=== PATIENT | male | born 1955 | race Caucasian/White ===

== ENCOUNTER 2022-03-22 01:10 | Day surgery (SDC) | payer BC, SELFPAY ==
[2022-03-21 15:12] VITALS: BMI 25.1
--- NOTE | 2022-03-21 15:17 | PC.NURSE ---
Report to the Outpatient Waiting Room, entrance under the green pavilion located off [facility], at time 0600 on date 03/22/22. Planned Procedure Time: 0730. Time changes happen often and if your time is changed the preop area will call you the afternoon before. - You and your visitor will be asked to self-screen and do not enter if you have any COVID symptoms. - Only one visitor is requested with a max of two and NO children visitors are allowed at this time. - The patient visitor may be requested to leave or wait in car when not with patient due to distancing restrictions. - A mask is optional within the hospital at this time. Patients may have clear liquids (water, carbonated beverages, clear teas, apple juice) until 3 hours prior to surgery with a maximum of 20 ounces. - No food from midnight until time of surgery Take the following medications with a SIP of water the morning of surgery: ANTIBIOTICS DO NOT STOP ANY OF YOUR OTHER PRESCRIPTION MEDICATIONS PRIOR TO SURGERY ?EXCEPT THE FOLLOWING Medications to discontinue per physician: VITAMINS Date to take last dose: NO MORE UNTIL AFTER SURGERY Please no make-up, nail cambodian, hairspray, perfume, deodorant, or body powder the day of surgery. No jewelry (including any body piercings) or valuables the day of surgery, leave them at home. Please take a shower or bath the night before, or the morning of, surgery with an antibacterial soap. Wear comfortable, loose fitting clothing. Children are encouraged to wear pajamas. - Jewelry must be removed prior to entering the operating room. Rings and piercings that are not removed may be cut off. - The hospital will not accept responsibility for valuables. - Please leave all valuables, including medications, at home the day of surgery. If you are going home after surgery, a licensed mule driver must drive you home. - NO public transportation without another adult if you receive anesthesia. - We recommend that an adult stay with you for 24 hours following discharge. - We also recommend that you do not drive, make important decision, drink alcoholic beverages, or take any drugs that were not prescribed by your health care provider for at least 24 hours after your discharge time. Follow any additional instructions given to you from your surgeon. If you or anyone in your household have experienced Covid symptoms in the past week, please notify your surgeon or the nurse liaison at the phone number below for possible testing. Telephone instructions given to PT - DEEPIKA PECK and asked if any additional questions and then verbalized understanding. Patient advised to call surgeon office or pre surgery nurse liaison [phone] if any additional questions.
[2022-03-22] VITALS (8 sets, daily range): BP systolic 86–128; BP diastolic 39–88; PULSE 58–68; RESP 12–18; TEMP 36.6–37.2; O2SAT 96–100
[2022-03-22] MEDS: ACETAMINOPHEN 500 MG TABLET 1000 MG PO (06:21)
[2022-03-22] MEDS: LACTATED RINGERS 1,000 ML 30 ML IV CONT ×2 (06:30→08:09)
--- NOTE | 2022-03-22 07:03 | WPDANESEPPF ---
Anes - Initial Pre Proc Eval Procedure: Operation Date: 03/22/22 07:30 Proposed Procedures p Incision and Drainage Noemy-Rectal Abscess - Arthur Christensen MD Date/Time: 03/22/22 07:03 Surgeon: Arthur Christensen MD Pre Op Diagnosis: noemy rectal abscess Patient Data Age: 66 Gender: M Height: 1.78 m Weight: 79.8 kg Last Vital Signs Temp 36.6 C 03/22/22 06:32 Pulse 66 03/22/22 06:32 Resp 16 03/22/22 06:32 BP 113/88 03/22/22 06:32 Pulse Ox 100 03/22/22 06:32 O2 Del Method Room Air 03/22/22 06:32 Allergies Allergy/AdvReac Type Severity Reaction Status Date / Time No Known Allergies Allergy Verified 03/22/22 06:12 Home Medications Medication Instructions Recorded Confirmed Type aspirin 81 mg chewable tablet 81 mg PO DAILY 03/21/22 03/22/22 History cephalexin 500 mg capsule 500 mg PO Q12H 03/21/22 03/22/22 History multivitamin 1 tablet PO DAILY 03/21/22 03/22/22 History sulfamethoxazole 800 1 tablet PO Q12H 03/21/22 03/22/22 History mg-trimethoprim 160 mg tablet Patient hx anesthesia problems: none Family hx anesthesia problems: none Results Review: All pre-operative results and documents have been reviewed as part of the pre-operative evaluation. [facility] Family History Family History (Updated 03/21/22 @ 10:30 by Arianne Vang) Other Malignant neoplasm of prostate Social History Social History (Updated 03/21/22 @ 10:31 by Arianne Vang) Smoking status: Never smoker Alcohol intake: current Drinks per week: 6 Substance use: never Substance use type: does not use Living arrangements: alone Occupation/Education: retired Spiritual care concerns: No Anes - Eval Final PreProcedure Day of Procedure 03/22/22 07:03 Patient weight: normal Heart: regular rate and rhythm Lungs: clear to auscultation and normal air movement Airway: Mallampati scale class II Neurological: alert and oriented Last oral intake: >/= 8 hours ASA classification: II Emergent: no Anesthetic plan: proceed Anesthesia type and monitoring: general GIVS and LMA Results Review: All pre-operative results and documents have been reviewed as part of the pre-operative evaluation. Informed Consent: The patient's anesthetic plan and its attendant risks and benefits were discussed with the patient/family/POA. Questions were solicited and answers provided to the satisfaction of the patient/family/POA.
[2022-03-22] MEDS: KETOROLAC 15 MG/ML VIAL (*BKC) IV PUSH ×2 (07:05→07:55)
--- NOTE | 2022-03-22 07:23 | WPDHPUPDATE1 ---
History and Physical Update Update Date/Time: 03/22/22 07:23 History and Physical has been reviewed, including an updated exam of the patient. There are NO changes in the patient's condition. Risks, benefits, and alternatives have been discussed and questions answered. Patient agrees to proceed with procedure.
[2022-03-22] MEDS: ceFAZolin 2 GM/D5W 50 ML 2 GM/50 ML BAG IVPB (07:32)
[2022-03-22] MEDS: LIDOCAINE HCL 1% PF 30 ML VIAL 20 ML INFILTRATE (07:59)
[2022-03-22] MEDS: BUPIVACAINE/EPINEPHRINE 0.5% 30 ML VIAL 20 ML INFILTRATE (07:59)
--- NOTE | 2022-03-22 08:13 | W.PM.PROC2 ---
Procedure Note - Detailed Date of Procedure 03/22/22 Pre-op Diagnosis nory rectal abscess Post-op Diagnosis Same Procedure Performed Complex incision and drainage of perirectal abscess. Surgeon Arthur Christensen MD Anesthesia General Indications Patient presents with a six-day history of increasing pain and swelling in the perianal region. On examination he has a perirectal abscess which is fluctuant. Findings Perirectal abscess located in the right posterior lateral position measuring approximately [id number] tracking posteriorly but without evidence of associated anal fistula. Description of Procedure After informed consent was obtained patient brought to the operating room and placed on the operating table in the lithotomy position high cane stirrups. Anesthesia then administered LMA general anesthesia. The area the perineal and perianal region was then prepped and draped in usual sterile fashion. A time-out was then performed correctly identifying the patient as well as the procedure to be performed and verified that he was given preoperative IV antibiotics. The area fluctuance was located approximately at the 7 o'clock position on the right posterior lateral side with the patient in lithotomy. I then used a #15 scalpel and made a radial incision over the most fluctuant portion of the abscess. The incision was approximately 1.5 cm in length. I took great care not to divide any sphincter muscles. Once the incision was made there was prompt drainage of approximately 20-30cc of pus. A culture of the abscess cavity was obtained and sent to microbiology for Gram stain and aerobic and anaerobic cultures. I then placed my index finger into the abscess cavity and there were no loculations. The the cavity tracked posterior for approximately 4 to 5 cm. At this point I then made a counter incision posteriorly with the scalpel and then irrigated out the cavity with proximal 500cc of saline solution. A quarter-inch Pricilla drain was then passed through the 2 incisions and looped to promote drainage. the Pricilla drain was secured in place with 2 0 silk sutures. I then packed the abscess cavity with half-inch iodoform gauze and then injected local anesthetic mixture consisting of 0.5% Marcaine with 1% lidocaine. The area was then cleaned and then 4 x 4 gauze and ABD pad and disposal underwear was used was used for final dressing. The patient tolerated the procedure well no complications. All sponges, needles, and instrument counts were correct at the end procedure. EBL was _25__cc. The patient was awakened and taken to recovery in stable satisfactory condition Estimated Blood Loss 25 Drains Yes (1/4 inch pricilla) Packing Yes (1/2 inch iodoform) Pathology Other (Abscess culture sent to microbiology.) Complications No immediate complications Condition Stable Disposition PACU [facility] Billing Surgery - Charge Forward: Surgery Billing
== END 2022-03-22 09:56 | disposition home or self-care (01) ==
PROVIDERS: PCP Internal Medicine Infectious Disease; Visit Provider Surgery
PROC: (CPT 46040; principal; 2022-03-22 07:30)
DX: K61.1 Rectal abscess (principal); Z79.82 Long term (current) use of aspirin
CPT/HCPCS: 45005; 87070; 87075; 87076; 87205; A9270; J0690; J1100; J1885; J2250; J2405; J2704; J3010; J7120